=== PATIENT | male | born 1945 | race Caucasian/White ===

== ENCOUNTER 2023-09-26 11:00 | Outpatient (RCR) | payer MEDICARE, SELFPAY ==
--- NOTE | 2023-09-13 12:44 | PT.OPE ---
PT [facility] Start: 09/13/23 08:43 Freq: Status: Active Protocol: Document 09/13/23 08:43 ENM (Rec: 09/13/23 10:08 ENM [id number]) E-signed By Fernanda Jones DPT Physical Therapy Outpatient Evaluation Insurance Information Recert Due Date 12/12/23 Insurance Name Medicare B Medical Diagnosis pain in right shoulder unspecified rotator cuff tear of right shoulder, not specified as traumatic Treating Diagnosis right shoulder pain, decreased right shoulder ROM, decreased shoulder strength, Referring MD Lyn Subjective Subjective Patient presents to PT for complaint of right shoulder pain. Has a history of right shoulder mini open RCR/SCD/DCE 2007. He stays active lifting weights upper and lower body at a weight room 2-3x a week. He does this to stay in good shape for [employer]. He does 80# single rows with the cable column. He tried to do shoulder ER with the cable column of 40# after that he started to get a pain through the shoulder. Since then he notices tenderness and difficulty with overhead presses as well. He does 4 reps of 12 for the cable column, bicep curls 2x30 reps. Other times will do 3x15 reps . 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 Concentrically reduced humeral head. Single metallic anchor seen within the greater tuberosity consistent with remote rotator cuff repair. No significant superior humeral migration. No signs of AVN. No acute fractures or other acute pathology. Shortened evaluation as patient ran 15 minutes late Pain Comments at its best: none at its worse: 3-08/02 easing:resting aggravating: putting shirt on, reaching behind Current Work Status Retired Objective Other/Pertinent Objective Shoulder AROM: Shoulder flexion: L 137 R 134 with slight pain in upper arm slow to perform Abduction: L 152 R 148 a little more sore IR: L T9 R L1 (used to be painful) ER: base of skull, a little sore No pain with shoulder PROM Cervical AROM: Flexion: WNL Ext: 25% limited SB: 25% limited Rot: WNL Strength: Shoulder flexion: L 4+/5 R 4/5 slight pain Shoulder abduction: L 5/5 R 4+ /5 + for pain Shoulder IR0: L 5/5 R 5/5 Shoulder ER0: L 4/5 R 4/5 + for pain elbow flexors L 5/5 R 5/5 Palpation/joint mobility: Posterior glide of GHJ: normal B Inferior glide of GHJ: normal B + for pain with palpation of infraspinatus and tendon, teres, R UT and supraspinatus tendon Special tests: raoul slight discomfort at end range sukhjinder tipton slight discomfort at end range open can - empty can + on R speeds - Assessment Assessment/Impression Patient is a 78 year old male presenting with acute right shoulder pain that started after a lifting injury at the gym. Pains have subsided in the last 5 weeks but are still present and bothersome with lifting up, behind the back or putting his shirt on. He does have a history for rotator cuff repair on that side. Xray imaging was negative for significant findings. Upon assessment patients concordant pains brought on with active shoulder abduction and flexion, resisted shoulder flexion, resisted shoulder ER, empty can testing and palpation of infraspinatus tendon, teres, supraspinatus tendon and UT musculature. Special testing + for empty can. Patient having minimal pain or weakness with assessment today . Today symptoms to be more likely tendonitis or small cuff tear. Magali would greatly benefit from skilled PT to address impairments stated above in order to perform all self cares/ADLs and recreational activities without significant discomfort or difficulty. Primary Functional Limitations putting shirt on, reaching behind the back, pressing overhead Plan of Care Rehabilitation Potential Good Physical Therapy Goals In 5-7 visits: 1. Patient will be IND with HEP and self management of symptoms 2. Patient will display pain free shoulder ROM in order to perform all self cares and ADLS without significant discomfort or difficulty 3. Patient will display improved global shoulder strength to at least 4+/5 without pain in order to perform bow hunting activities 4. Patient will display improved scapular awareness and engagement with exercises and bow hunting to better support shoulder with weight lifting routine and recreational activities Coordination/Communication With Referral Source Treatment Plan/Direct Interventions Ice/Cold/Vasopneumatic,Joint Mobilization,Manual Therapy, Neuromuscular Re-ed,Self-Care/ Home Management,Therapeutic Activities,Therapeutic Exercises Frequency/Duration 1x a week for 5-7 visits Patient Will Be Discharged From Therapy Completion of LTG(s), Independent w/HEP Evaluation Billing Untimed Code Treatment Minutes 25 Complexity Low Certification Information Initial Certification Date 09/13/23 Ending Certification Date 12/12/23 Provider Signature Shows Agreement With POC & Medical Necessity Physician Signature & Date Requested Please Sign/Date Here Physician Comment/Change : Physician NPI Number #
== END 2023-11-08 14:31 | disposition home or self-care (01) ==
PROVIDERS: PCP Family Medicine; Visit Provider Orthopaedic Surgery Sports Medicine
DX: M75.101 Unspecified rotator cuff tear or rupture of right shoulder, not specified as traumatic (principal); Z51.89 Encounter for other specified aftercare; R29.898 Other symptoms and signs involving the musculoskeletal system
CPT/HCPCS: 97110; 97161